=== PATIENT | male | born 1940 | race Caucasian/White ===

== ENCOUNTER 2016-09-28 14:02 | Inpatient (IN) | payer MEDICARE, OTHER ==
[2016-09-28] MEDS ORDERED: METHYLPREDNISOLONE SOD 125 MG/2 ML VIAL ONE (14:25)
[2016-09-28] MEDS ORDERED: IPRATROPIUM/ALBUTEROL 0.5/3 MG 3 ML AMPUL.NEB INHALATION ONE (14:26)
[2016-09-28 14:35] LABS: BASOPHIL# 0.3 X 10^3uL (0.0-0.1); BASOPHILS 2.7 % (0.0-2.0); EOSINOPHILS 2.8 % (0.0-6.0); EOSINOPHILS# 0.3 X 10^3uL (0.0-0.4); HEMOGLOBIN 16.7 g/dL (14.0-18.0); LYMPHOCYTES 12.1 % (20.0-40.0); LYMPHOCYTES# 1.3 X 10^3uL (0.8-3.8); MEAN CELL VOLUME 91.8 fL (80.0-100.0); MEAN CORPUS. HGB CONCENTRATION 34.8 g/dL (32.0-36.0); MEAN PLATELET VOLUME 8.7 fL (7.4-10.4); MONOCYTES 9.2 % (2.0-10.0); NEUTROPHILS 73.2 % (54.0-75.0); NEUTROPHILS# 7.5 X 10^3uL (2.6-6.7); PLATELET COUNT 154 X 10^3uL (130-440); RED BLOOD COUNT 5.23 X 10^6uL (4.20-6.10); RED CELL DISTRIBUTION WIDTH 12.1 % (11.5-14.5); WHITE BLOOD COUNT 10.4 X 10^3uL (3.9-10.7)
[2016-09-28] MEDS ORDERED: MAGNESIUM SULFATE 100 ML IV ONE (14:38)
[2016-09-28 14:50] LABS: BLOOD UREA NITROGEN 15 mg/dL (9-20); CALCIUM 9.9 mg/dL (8.4-10.2); CHLORIDE 104 mmol/L (98-107); EST GLOMERULAR FILTRATION RATE > 60 mL/min; GLUCOSE 86 mg/dL (70-100); SODIUM 139 mmol/L (137-145)
[2016-09-28] MEDS ORDERED: ACETAMINOPHEN 325 MG TABLET PO PRN (15:03)
[2016-09-28] MEDS ORDERED: HOME MEDICATION LIST NEEDED 1 EA EACH MC ONE (15:03)
[2016-09-28] MEDS ORDERED: AZITHROMYCIN 250 MG TABLET PO ONE ×2 (15:07→16:57)
--- NOTE | 2016-09-28 15:41 | ER NURSING DOCUMENTATION ---
Nurse's Notes [facility] Name:Reid Graham Age:76 yrs Sex:Male :1940 Arrival Date:09/28/2016 Time:14:02 Bed1 Private MD:Jayant Castañeda Diagnosis:COPD Exacerbation Presentation: 09/28 14:04 Acuity: MARLENY 3 st 14:04 Transition of care: [facility]. Notified ED Physician of Harris Garcia notified. st 14:04 Method Of Arrival: Private Vehicle st 14:34 Presenting complaint: Patient states: Pt states since Saturday night he has had rh difficulty breathing, chest tightness, cough and "feeling lousy". Pt was sent up from the clinic with hypoxia/atelectasis shown on CXR and negative influenza A and B. Triage Assessment: 14:15 General: Appears in no apparent distress, Behavior is cooperative. Pain: Complains of rh pain in abdomen Pain began Pain is only present when patient is coughing deeply. EENT: Oral mucosa is dry. Neuro: Level of Consciousness is awake, alert, obeys commands, Oriented to person, place, time, event. Cardiovascular: Capillary refill < 3 seconds Rhythm is sinus rhythm Chest pain is denied. Respiratory: Airway is patent Respiratory effort is even, labored, Respiratory pattern is regular, symmetrical, Reports. Respiratory: Onset: The symptoms/episode began/occurred yesterday, the patient has mild shortness of breath. Respiratory: Reports shortness of breath at rest since Saturday Night cough that is non-productive, labored breathing pain with cough. GI: Abdomen is obese, Denies diarrhea, nausea, vomiting. : No deficits noted. Derm: Skin is intact, is healthy with good turgor, Skin is pink, warm & dry. Historical: - Allergies: Tape; Celebrex; erythromycin; IODINEIODINE CONTAINING; Sulfa (Sulfonamide Antibiotics); Amitriptyline; Avapro; GABAPENTIN; Hytrin; meloxicam; Naproxen; Neosporin ([id number]); Novocain; NSAIDS; PENICILLINS; Zestril; - Home Meds: 1. Flomax 0.4 mg oral cp24 1 cap once daily 1/2 hour following the same meal each day 2. Zofran Oral 3. oxygen 4. Anusol Rectal 5. betamethasone dipropionate top 6. Alprazolam Oral 7. Furosemide Oral 8. Potassium Chloride Oral 9. Metoprolol Tartrate Oral 10. Metamucil Smooth Texture Oral 11. Miralax Oral 12. Pepcid Oral 13. cesar root (bulk) misc 14. finasteride oral 15. cabergoline oral 16. Vitamin D Oral - PMHx: HYPOTHYROIDISM; BPH; COPD; HYPERTENSION; DIABETES - NIDDM; SLEEP APNEA; GERD; ANXIETY; - PSHx: TURP; APPENDECTOMY; - Tetanus: < 10 years. - Ebola Screening: : Patient negative for fever greater than or equal to 101.5 degrees Fahrenheit, and additional compatible Ebola Virus Disease symptoms. - Immunization history: Pneumococcal vaccine is up to date. - Social history: Smoking status: Patient states former smoker of tobacco. Patient/guardian denies using alcohol. Screenin:28 Infectious Disease Risk None. Abuse screen: Denies threats or abuse. Denies injuries rh from another. Nutritional screening: No deficits noted. Assessment: 14:29 See Triage Assessment done by same RN. rh Vital Signs: 14:10 BP 167 / 101; Pulse 88; Resp 17; Temp 97.7(O); Pulse Ox 87% on R/A; Weight 104.33 kg; rh Height 5 ft. 9 in. (175.26 cm); Pain 0/10; 14:20 Pulse 83; Resp 15; Pulse Ox 92% on 3 lpm NC; rh 15:38 BP 165 / 80; Pulse 82; Resp 18; Pulse Ox 91% on 3 lpm NC; Pain 0/10; rh 14:10 Body Mass Index 33.96 (104.33 kg, 175.26 cm) rh ED Course: 14:02 Oxygen Oxygen administration via nasal cannula @ 3L/min. rh 14:03 Patient arrived in ED. lm3 14:03 Jayant Castañeda MD is Private Physician. lm3 14:[address] 14:05 Reid Iglesias MD is Attending Physician. jm 14:10 monitoring coordinator on. Pulse ox on. NIBP on. rh 14:12 Misty Camejo is Primary Nurse. rh 14:18 EKG done. (by ED staff). Reviewed by Reid Iglesias MD. 14:27 Inserted peripheral IV: 20 gauge in right antecubital area and blood collected. st 14:28 Valuables Remains with patient Patient has correct armband on for positive rh identification. Bed in low position. Call light in reach. Side rails up X 1. 15:09 EKG attached 15:13 Paula Kinney MD is Admitting Physician. Administered Medications: 12:25 Drug: Solu-MEDROL 125 mg; Route: IVP; Site: right antecubital; rh 14:40 Follow up: Response: No adverse reaction rh 14:22 Drug: DuoNeb (Albuterol 2.5 mg, Atrovent 0.5 mg); 3 ml; Route: Nebulizer; rh 14:34 Follow up: Response: No adverse reaction rh 14:30 Drug: Magnesium Sulfate 1 grams; Route: IVPB; Infused Over: 30 mins; Site: right rh antecubital; 15:05 Follow up: IV Status: Completed infusion; IV Intake: 100ml rh Intake: 15:05 IV: 100ml; Total: 100ml. Outcome: 15:13 Decision to Admit by Provider. 15:38 Admitted to Med/surg accompanied by nurse, via stretcher, with oxygen, with chart. 15:38 Condition: stable 15:38 Report given to HÉCTOR DUFFY RN MED SURG 15:38 Discharge Assessment: Patient awake, alert and oriented x 3. No cognitive and/or functional deficits noted. Patient verbalized understanding of disposition instructions. 15:38 Instructed on need to admit 15:39 Patient left the ED. Signatures: Falguni Biggs RN RN st Meyer, John, MD MD jm Hofsess, Rachel Constanza Underwood 3
--- NOTE | 2016-09-28 15:41 | ER PHYSICIAN DOCUMENTATION ---
Physician Documentation [facility] Name:Reid Graham Age:76 yrs Sex:Male :1940 Arrival Date:09/28/2016 Time:14:02 Bed1 Private MD:Jayant Castañeda EDReid ceja Disposition: 09/28/16 15:13 Admit ordered for Paula Kinney. Preliminary diagnosis is COPD Exacerbation. - Bed requested for Medical/Surgical. - Condition is Fair. - Problem is new. - Symptoms are unchanged. 23 HR OBS Yes HPI: 09/28 14:43 This 76 yrs old Male presents to ER via Private Vehicle with complaints of jm COPD Exacerbation. 14:43 The patient has shortness of breath at rest, while exercising. Onset: The jm symptom(s)/episode began/occurred 2 day(s) ago, and became worse today. Duration: The symptoms are continuous. The patient's shortness of breath is aggravated by light activity. Associated signs and symptoms: Pertinent positives: non-productive cough, Pertinent negatives: chest pain, only when coughing - bilateral ribs. Severity of symptoms: in the emergency department the symptoms have improved mildly. The patient has experienced a previous episode, approximately 2 years ago. The patient has been recently seen by a physician: Dr. Kinney, with similar presenting complaints, X-rays were performed, and pt told to come to the ER for eval, but the patient's symptoms have persisted. Dr. Kinney has sent up this pleasant gentleman for COPD work up and treatment. Xrays were reviewed by her and showed no infiltrate and flu swabs were negative. HE was given 1 duoneb downstairs but continues to be tight w difficulty moving air and hypoxia, so she wanted him seen here for urgent w/u and admission. . Historical: - Allergies: Tape; Celebrex; erythromycin; IODINEIODINE CONTAINING; Sulfa (Sulfonamide Antibiotics); Amitriptyline; Avapro; GABAPENTIN; Hytrin; meloxicam; Naproxen; Neosporin ([id number]); Novocain; NSAIDS; PENICILLINS; Zestril; - Home Meds: 1. Flomax 0.4 mg oral cp24 1 cap once daily 1/2 hour following the same meal each day 2. Zofran Oral 3. oxygen 4. Anusol Rectal 5. betamethasone dipropionate top 6. Alprazolam Oral 7. Furosemide Oral 8. Potassium Chloride Oral 9. Metoprolol Tartrate Oral 10. Metamucil Smooth Texture Oral 11. Miralax Oral 12. Pepcid Oral 13. cesar root (bulk) misc 14. finasteride oral 15. cabergoline oral 16. Vitamin D Oral - PMHx: HYPOTHYROIDISM; BPH; COPD; HYPERTENSION; DIABETES - NIDDM; SLEEP APNEA; GERD; ANXIETY; - PSHx: TURP; APPENDECTOMY; - Tetanus: < 10 years. - Ebola Screening: : Patient negative for fever greater than or equal to 101.5 degrees Fahrenheit, and additional compatible Ebola Virus Disease symptoms. - Immunization history: Pneumococcal vaccine is up to date. - Social history: Smoking status: Patient states former smoker of tobacco. Patient/guardian denies using alcohol. ROS: 14:46 Constitutional: Negative for fatigue, fever. jm 14:46 ENT: Negative for rhinorrhea, sinus congestion, sinus pain, sore throat. 14:46 Cardiovascular: Positive for chest pain, with cough. 14:46 Respiratory: Positive for cough, dyspnea on exertion, shortness of breath, wheezing. 14:46 Abdomen/GI: Negative for abdominal pain, nausea, vomiting, diarrhea. 14:46 MS/extremity: Negative for swelling, tenderness. 14:46 Skin: Negative for rash, swelling. 14:46 Neuro: Negative for dizziness, headache. 14:46 All other systems are negative. Exam: 14:47 Constitutional: The patient appears alert, awake, comfortable. 14:47 Eyes: Periorbital structures: appear normal, Pupils: equal, round, and reactive to light and accomodation, Extraocular movements: intact throughout. 14:47 ENT: Mouth: is normal, Voice: is normal. 14:47 Neck: Thyroid: appears normal, Trachea: is midline with no obvious abnormalities. 14:47 Cardiovascular: Rate: normal, Rhythm: regular. 14:47 Respiratory: the patient does not display signs of respiratory distress, Pt is moving air. , Respirations: normal, Breath sounds: wheezing, that is moderate, is heard diffusely. 14:47 Abdomen/GI: Bowel sounds: normal, Palpation: abdomen is soft and non-tender. 14:47 Back: pain, is absent, CVA tenderness, is absent. 14:47 Musculoskeletal/extremity: DVT Exam: No signs of deep vein thrombosis. Calves: are non-tender. 14:47 Skin: Appearance: Color: pink. 14:47 Neuro: Mentation: is normal, Memory: is normal. 14:47 Psych: Behavior/mood is pleasant, cooperative, Affect is calm. Vital Signs: 14:10 BP 167 / 101; Pulse 88; Resp 17; Temp 97.7(O); Pulse Ox 87% on R/A; Weight 104.33 kg; rh Height 5 ft. 9 in. (175.26 cm); Pain 0/10; 14:20 Pulse 83; Resp 15; Pulse Ox 92% on 3 lpm NC; rh 15:38 BP 165 / 80; Pulse 82; Resp 18; Pulse Ox 91% on 3 lpm NC; Pain 0/10; rh 14:10 Body Mass Index 33.96 (104.33 kg, 175.26 cm) rh MDM: 14:32 Patient medically screened. 14:51 Differential diagnosis: asthma, CHF exacerbation, Chronic Obstructive Pulmonary Disease jm pulmonary edema. Antibiotic administration: The patient is discharged and will get outpatient antibiotics, Zithromax. Data reviewed: vital signs, nurses notes, old medical records, lab test result(s), EKG, radiologic studies, and as a result, I will admit patient. Data interpreted: Pulse oximetry: is 90 %. Test interpretation: by ED physician or midlevel provider: plain radiologic studies, ECG. Counseling: I had a detailed discussion with the patient and/or guardian regarding: the historical points, exam findings, and any diagnostic results supporting the discharge/admit diagnosis, lab results, radiology results, the need for further work-up and treatment in the hospital. ECG:. Medication response: The patient's symptoms have improved. Physician consultation: Paula Kinney MD regarding admission, and will see patient shortly, later today. Admission orders: after a detailed discussion of the patient's condition and case, the admit orders are written by me. ED course: PT doing better here then report given to me from Dr. Kinney. He is moving air, although still wheezy. Pt doing well on 3LNC. HE normally does not wear any during the day however. Duoneb, mag, and Solu-Medrol given in ED. Will given PO Zithromax and admit. . 15:09 EKG attached rh 09/28 14:50 Order name: CBC AUTO DIF, MDIF/RMOR IF IND; Complete Time: 15: [facility] 09/28 14:52 Order name: BASIC METABOLIC PANEL; Complete Time: 15: [facility] 09/28 14:06 Order name: 12-lead EKG; Complete Time: 14: 09/28 14:06 Order name: Continuous Cardiac Monitoring; Complete Time: 14: 09/28 14:06 Order name: I & O; Complete Time: 14: 09/28 14:06 Order name: Iv Saline Lock; Complete Time: : 09/28 14:06 Order name: Oxygen; Complete Time: : 09/28 14:06 Order name: Pulse Ox Continuous; Complete Time: : EC:51 Rhythm is regular. QRS [place] is Normal. VA interval is normal. QT interval is normal. No jm Q waves. T waves are Normal. No ST changes noted. Dispensed Medications: 12:25 Drug: Solu-MEDROL 125 mg; Route: IVP; Site: right antecubital; rh 14:40 Follow up: Response: No adverse reaction rh 14:22 Drug: DuoNeb (Albuterol 2.5 mg, Atrovent 0.5 mg); 3 ml; Route: Nebulizer; rh 14:34 Follow up: Response: No adverse reaction 14:30 Drug: Magnesium Sulfate 1 grams; Route: IVPB; Infused Over: 30 mins; Site: right antecubital; 15:05 Follow up: IV Status: Completed infusion; IV Intake: 100ml rh Signatures: Falguni Biggs RN RN st Meyer, John, MD MD jm Hofsess, Rachel
[2016-09-28] MEDS ORDERED: O2 HUMIDIFIER 650 ML BOTTLE INHALATION ONE (17:02)
[2016-09-28] MEDS: IPRATROPIUM/ALBUTEROL 0.5/3 MG 3 ML AMPUL.NEB INHALATION SCH ×2 (17:12→21:15)
[2016-09-28] MEDS ORDERED: POLYETHYLENE GLYCOL 3350 17 GM POWD.PACK PO PRN (18:00)
[2016-09-28] MEDS ORDERED: ALPRAZolam 0.5 MG TABLET PO PRN (18:00)
[2016-09-28 18:21] LABS: ALBUMIN 4.2 g/dL (3.5-5.0); BILIRUBIN, DIRECT 0.2 mg/dL (0.0-0.4); BILIRUBIN, TOTAL 0.8 mg/dL (0.2-1.3); TOTAL PROTEIN 6.9 g/dL (6.3-8.2)
[2016-09-28] MEDS ORDERED: metoprolol SUCC ER 25 MG TABLET PO ONE (20:00)
[2016-09-28] MEDS: PROBIOTIC 1 CAP CAPSULE PO SCH (20:50)
[2016-09-28] MEDS: TAMSULOSIN HCL 0.4 MG CAPSULE PO SCH (20:51)
[2016-09-28] MEDS: ACETAMINOPHEN ER 650 MG TAB.SR.8HR PO PRN (20:51)
[2016-09-28] MEDS: FINASTERIDE 5 MG TABLET PO SCH (20:51)
[2016-09-28] MEDS: traZODone HCL 50 MG TABLET PO SCH (20:51)
[2016-09-28] MEDS: METHYLPREDNISOLONE SOD 125 MG/2 ML VIAL IV SCH (21:15)
[2016-09-28] MEDS: BENZONATATE 100 MG CAPSULE PO PRN (21:16)
[2016-09-28] MEDS: INSULIN LISPRO 100 UNIT/ML ML SUBCUT SCH (21:16)
[2016-09-28 21:40] LABS: URINE MUCUS NONE SEEN (Up to 25%); URINE RBC NONE SEEN (0-5/hpf); URINE SQUAMOUS EPITHELIAL CELL NONE SEEN (<= 15/hpf)
[2016-09-28 21:53] LABS: URINE APPEARANCE CLEAR; URINE COLOR YELLOW; URINE GLUCOSE 100mg/dL (NEGATIVE); URINE KETONE 5mg/dL (NEGATIVE); URINE LEUKOCYTE ESTERASE NEGATIVE (NEGATIVE); URINE NITRITE NEGATIVE (NEGATIVE); URINE PH 5.5 (5-7); URINE PROTEIN NEGATIVE (NEG - TRACE); URINE UROBILINOGEN 0.2mg/dL (Normal) (NEG-1mg/dL)
[2016-09-28 21:54] LABS: URINE BACTERIA NONE SEEN (<10/hpf); URINE BILIRUBIN NEGATIVE (NEGATIVE); URINE BLOOD NEGATIVE (NEGATIVE); URINE WBC 0-4/hpf (0-4/hpf)
[2016-09-28] MEDS ORDERED: SIMETHICONE CHEW 80 MG TABLET PO PRN (22:05)
--- NOTE | 2016-09-29 03:13 | HISTORY & PHYSICAL ---
DATE OF ADMISSION: 09/28/16 PRIMARY CARE PROVIDER: Dr. Jayant Castañeda. CHIEF COMPLAINT: Cough. HISTORY OF PRESENT ILLNESS: This is a pleasant 76-year-old male with a history of chronic obstructive pulmonary disease who wears 2 liters of oxygen at night, who presents with a 3-day history of productive cough, profound rhinorrhea and shortness of breath. He has had associated significant fatigue. He did not sleep last night at all secondary to his cough. He has had nasal congestion, a sore throat and wheezing. He has not had any fevers, chills or sweats. No trouble swallowing. No ear pain. No headaches. No hemoptysis. He has not had any sinus congestion. He states that his symptoms are worsening. He used Mucinex, Tylenol and Duo nebulizers at home with minimal to no relief. He has had chest pain with coughing. Of note, the patient was initially seen in the office. Because his aeration did not improve after Duo nebulizer, he was transported to the emergency room. In the emergency room he was given Solu- Medrol 125 mg IV and Duo nebulizer times 1, magnesium sulfate 1 g, and normal saline 100 mL. He was then taken to the medical surgical floor. REVIEW OF SYSTEMS: He has not had ear pain, eye discharge. No myalgias, no arthralgias. No lightheadedness. No nausea or vomiting, diarrhea or abdominal pain. His appetite has been fair. PAST MEDICAL HISTORY 1. Fatty liver. 2. Nocturnal hypoxia, wears 2 liters at night. 3. Degenerative disk disease of the cervical spine. 4. Basal cell carcinoma of his nose status post Mohs procedure. 5. History of colonic polyps. 6. Idiopathic peripheral neuropathy. 7. Paroxysmal supraventricular tachycardia. 8. 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 9. Hypothyroidism. 10. Hyperlipidemia. 11. Benign prostatic hypertrophy. 12. COPD. 13. Hypertension. 14. History of nephrolithiasis. 15. History of prior pneumonia. 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 17. Controlled diabetes with diabetic neuropathy. 18. Dry eye syndrome. 19. Cataract bilaterally. 20. Pituitary adenoma. 21. Obstructive sleep apnea. Has not been able to tolerate CPAP. 22. Hypotestosteronism. 23. Gastroesophageal reflux disease. 24. History of chronic prostatitis without hematuria. 25. Anxiety. 26. Eczema. 27. Obesity. 28. Fecal incontinence. 29. Erectile dysfunction. PAST SURGICAL HISTORY 1. Status post transurethral resection of the prostate in 2012. 2. History of left tibia/fibia fracture status post operative reduction and internal fixation with screw removal in 2000. 3. Appendectomy. MEDICATIONS Flomax 0.4 mg daily. Medical compression stockings below the knee 15-20 mmHg. Furosemide 20 mg every morning as needed for edema. Potassium chloride ER 10 mEq daily when Lasix is taken. Betamethasone dipropionate 0.05% twice daily to feet as needed. Alprazolam 0.5 mg twice daily. Anusol HC one two times daily as needed for hemorrhoids. Zofran ODT 4 mg every 8 hours as needed for nausea. Oxygen 2 liters at night. Metoprolol succinate ER 25 mg daily. Pepcid 20 mg daily. Metamucil 28.3% powder as needed. MiraLax 1 cap full as needed. Maalox as needed. Cabergoline 0.5 one-half tablet weekly. Vitamin D3 daily. Caroline root 500 mg as needed. Finasteride 5 mg daily. ALLERGIES: Adhesive tape, Celebrex, erythromycin, Flomax, iodinated contrast, sulfa, amitriptyline, Avapro, gabapentin, Hytrin, meloxicam, Naprosyn, Neosporin , novocaine, NSAIDs, penicillin, Zestril. SOCIAL HISTORY: He is . They have 3 children. 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 No alcohol use. Former smoker, quit in 1989, 36-pack year history. FAMILY HISTORY: Mom at the age of 80 with ALS. Dad at the age of 54 of a GA. He has one daughter with bipolar disorder. Maternal grandfather at 56 of a myocardial infarction. He also had diabetes mellitus. DATA: CBC unremarkable. BMP also normal. LFTs normal. Influenza A and B negative. IMAGING: Chest x-ray: No evidence of pneumonia or pulmonary edema. Linear opacities in the right middle lobe and lingual most consistent with scarring or subsegmental atelectasis. PHYSICAL EXAMINATION VITAL SIGNS: In the office temperature 98.7, pulse 82, respiratory rate 20, pulse oximetry 87% on room air, blood pressure 143/76, weight 234.44 pounds, height 69 inches, pulse oximetry 91-92% on 3 liters simple mask. This was placed secondary to nasal congestion. After nebulizer he was 79-82% on room air and increased to 88-89% with deep breathing. His peak flows before nebulizer 350, 310, 290, and post nebulizer 280, 293, 310. GENERAL: This is a very pleasant, obese male who is in mild respiratory distress. He has audible wheezing. HEENT: His sclerae are clear. His TMs are clear. He has some cerumen but not fully impacted. His nares are boggy, congested. No bleeding. No sinus tenderness. LUNGS: Very poor aeration throughout with diffuse inspiratory and expiratory wheezing. Not much improvement after one Duo nebulizer given. HEART: Regular rate and rhythm without any murmurs, rubs or gallops. ABDOMEN: Obese, soft, nontender, nondistended with good bowel sounds and no masses or hepatosplenomegaly. EXTREMITIES: Warm. No clubbing, cyanosis or edema. NEUROLOGIC: The patient is alert and oriented x3. He has some difficulty with giving a complete history. He is at his baseline mild cognitive impairment status. ASSESSMENT: This is a very pleasant 76-year-old who presents with COPD exacerbation. PLAN 1. Fluids, electrolytes and nutrition. The patients electrolytes are stable. He appears euvolemic. Buff cap IV fluids. Diabetic diet. 2. Respiratory. The patient with history of COPD. He uses oxygen at night but not usually during the day. He is hypoxemic. Continue oxygen to keep saturations at 88-89%. Continue Duo nebulizers. Continue steroids. Azithromycin. Blood cultures times 2. Sputum cultures have been ordered. CBC is unremarkable. 3. Cardiovascular. The patient had EKG in the emergency room. Will review. The patient is placed on telemetry. The patient has a history of hypertension. Will continue beta johny. 4. . The patient with history of benign prostatic hypertrophy. Check urinalysis. Continue Flomax, Proscar. 5. GI. The patient with history of gastroesophageal reflux disease and constipation. Continue bowel regimen. 6. Psychosocial. The patient with history of anxiety. Will continue Xanax as per home regimen. Will use trazodone for sleep. 7. Disposition. Admitted to observation. Core status is full core. Anticipate 1-2 day hospital stay. CC: Dr. Jayant EDWARDS
[2016-09-29 03:51] VITALS: RESP 20
[2016-09-29] MEDS: METHYLPREDNISOLONE SOD 125 MG/2 ML VIAL IV SCH ×5 (04:03→21:22)
[2016-09-29] MEDS: IPRATROPIUM/ALBUTEROL 0.5/3 MG 3 ML AMPUL.NEB INHALATION SCH ×4 (04:03→21:22)
[2016-09-29] MEDS: BENZONATATE 100 MG CAPSULE PO PRN ×2 (04:11→21:36)
[2016-09-29] MEDS: ACETAMINOPHEN ER 650 MG TAB.SR.8HR PO PRN ×2 (06:07→21:36)
[2016-09-29 07:04] LABS: BLOOD UREA NITROGEN 23 mg/dL (9-20); CALCIUM 9.6 mg/dL (8.4-10.2); CHLORIDE 102 mmol/L (98-107); EST GLOMERULAR FILTRATION RATE > 60 mL/min; GLUCOSE 183 mg/dL (70-100); POTASSIUM 4.3 mmol/L (3.5-5.1); SODIUM 137 mmol/L (137-145)
[2016-09-29 07:06] LABS: HEMATOCRIT 50.2 % (42.0-54.0); HEMOGLOBIN 17.2 g/dL (14.0-18.0); MEAN CELL VOLUME 93.8 fL (80.0-100.0); MEAN CORPUS. HGB CONCENTRATION 34.3 g/dL (32.0-36.0); MEAN CORPUSCULAR HEMOGLOBIN 32.2 pg (29.0-35.0); MEAN PLATELET VOLUME 8.8 fL (7.4-10.4); PLATELET COUNT 169 X 10^3uL (130-440); RED BLOOD COUNT 5.35 X 10^6uL (4.20-6.10); RED CELL DISTRIBUTION WIDTH 12.1 % (11.5-14.5); WHITE BLOOD COUNT 13.1 X 10^3uL (3.9-10.7)
[2016-09-29 07:07] LABS: BAND% (Manual) 14 % (0.0-1.0); BASOPHIL % (Manual) 1 % (0.0-2.0); LYMPHOCYTE % (Manual) 5 % (20.0-40.0); MONOCYTE % (Manual) 1 % (2.0-10.0); NEUTROPHIL % (Manual) 79 % (54.0-75.0)
[2016-09-29 07:08] LABS: PLATELET ESTIMATE ADEQUATE
[2016-09-29] MEDS: INSULIN LISPRO 100 UNIT/ML ML SUBCUT SCH ×4 (07:16→21:17)
--- NOTE | 2016-09-29 08:42 | PROGRESS NOTE: IM SOAP ---
IM: PN Subjective General: fatigue (But improving.), good appetite, pain (Chest side wall pain improving.), no fever, no chills HEENT: sore throat Cardiovascular: chest pain (Mid-sternal, "solar plexus" chest wall pain last night improved.) Respiratory: cough (Dry cough), wheeze, SOB, no sputum Gastrointestinal: no abdominal pain, no bloating, no nausea, no vomiting, no diarrhea Genitourinary: other (chronic dribbling) IM: PN Objective Exam - I&O/Vital Signs I&O: Intake & Output 09/28/16 09/29/16 09/29/16 21:59 05:59 13:59 Intake Total 970 Output Total 830 Balance 140 Weight 104.326 kg Intake: Oral 970 Output: Urine 830 Other: Urine Appearance Clear Urine Color Straw Voiding Method Toilet Toilet # Voids 2 Vital Signs: Last Vital Signs Temp 36.5 C 09/29/16 06:50 Pulse 82 09/29/16 06:50 Resp 20 09/29/16 06:50 BP 140/80 09/29/16 06:50 Pulse Ox 93 09/29/16 06:50 Oxygen Flow Rate 3 Oxygen Delivery Method Nasal Cannula - Constitutional General appearance: Present: obese. Absent: acute distress - Head Head exam: Present: atraumatic, normal inspection, normocephalic - Eye Eye exam: Present: EOMI, PERRL - ENT ENT exam: Present: mucous membranes moist - Neck Neck exam: Present: full ROM - Respiratory Respiratory exam: Present: chest wall tenderness (Lateral chest wall, both sides.), wheezes (Inspiratory and expiratory wheezes throughout. ), other (Mild improved aeration as compared to admission.). Absent: accessory muscle use, rales - Cardiovascular Cardiovascular exam: Present: tachycardia. Absent: gallop, rubs, systolic murmur - GI/Abdominal GI/Abdominal exam: Present: normal bowel sounds, soft. Absent: mass, organomegaly, rebound, tenderness - Extremities Exam Extremities exam: Absent: calf tenderness, edema, tenderness - Neurological Exam Neurological exam: Present: alert, oriented X3 - Psychiatric Psychiatric exam: Present: anxious (At his baseline), normal mood - Allied Health Notes Allied health notes reviewed: nursing - Lab Labs: Laboratory Last Values WBC 13.1 X 10^3uL (3.9-10.7) H 09/29/16 06:15 RBC 5.35 X 10^6uL (4.20-6.10) 09/29/16 06:15 Hgb 17.2 g/dL (14.0-18.0) 09/29/16 06:15 Hct 50.2 % (42.0-54.0) 09/29/16 06:15 MCV 93.8 fL (80.0-100.0) 09/29/16 06:15 MCH 32.2 pg (29.0-35.0) 09/29/16 06:15 MCHC 34.3 g/dL (32.0-36.0) 09/29/16 06:15 RDW 12.1 % (11.5-14.5) 09/29/16 06:15 Plt Count 169 X 10^3uL (130-440) 09/29/16 06:15 MPV 8.8 fL (7.4-10.4) 09/29/16 06:15 Total Counted 100 09/29/16 06:15 Neutrophils % 73.2 % (54.0-75.0) 09/28/16 14:15 Neutrophils % (Manual) 79 % (54.0-75.0) H 09/29/16 06:15 Band Neuts % (Manual) 14 % (0.0-1.0) H 09/29/16 06:15 Lymphocytes % 12.1 % (20.0-40.0) L 09/28/16 14:15 Lymphocytes % (Manual) 5 % (20.0-40.0) L 09/29/16 06:15 Monocytes % (Manual) 1 % (2.0-10.0) L 09/29/16 06:15 Eosinophils % 2.8 % (0.0-6.0) 09/28/16 14:15 Basophils % 2.7 % (0.0-2.0) H 09/28/16 14:15 Basophils % (Manual) 1 % (0.0-2.0) 09/29/16 06:15 Neutrophils # 7.5 X 10^3uL (2.6-6.7) H 09/28/16 14:15 Lymphocytes # 1.3 X 10^3uL (0.8-3.8) 09/28/16 14:15 Monocytes 9.2 % (2.0-10.0) 09/28/16 14:15 Monocytes # 1.0 X 10^3uL (0.2-1.0) 09/28/16 14:15 Eosinophils # 0.3 X 10^3uL (0.0-0.4) 09/28/16 14:15 Basophils # 0.3 X 10^3uL (0.0-0.1) H 09/28/16 14:15 Platelet Estimate Adequate 09/29/16 06:15 Sodium 137 mmol/L (137-145) 09/29/16 06:15 Potassium 4.3 mmol/L (3.5-5.1) 09/29/16 06:15 Chloride 102 mmol/L (98-107) 09/29/16 06:15 Carbon Dioxide 24 mmol/L (22-30) 09/29/16 06:15 BUN 23 mg/dL (9-20) H D 09/29/16 06:15 Creatinine 1.0 mg/dL (0.7-1.3) 09/29/16 06:15 GFR Calculation > 60 mL/min 09/29/16 06:15 Glucose 183 mg/dL (70-100) H 09/29/16 06:15 Calcium 9.6 mg/dL (8.4-10.2) 09/29/16 06:15 Total Bilirubin 0.8 mg/dL (0.2-1.3) 09/28/16 14:06 Direct Bilirubin 0.2 mg/dL (0.0-0.4) 09/28/16 14:06 AST 30 U/L (17-59) 09/28/16 14:06 ALT 42 U/L (21-72) 09/28/16 14:06 Alkaline Phosphatase 44 U/L (38-126) 09/28/16 14:06 Total Protein 6.9 g/dL (6.3-8.2) 09/28/16 14:06 Albumin 4.2 g/dL (3.5-5.0) 09/28/16 14:06 Urine Color Yellow 09/28/16 20:45 Urine Appearance Clear 09/28/16 20:45 Urine pH 5.5 (5-7) 09/28/16 20:45 Ur Specific Nicholls 1.020 (0.001-1.035) 09/28/16 20:45 Urine Protein Negative (NEG - TRACE) 09/28/16 20:45 Urine Ketones 5mg/dl (NEGATIVE) A 09/28/16 20:45 Urine Blood Negative (NEGATIVE) 09/28/16 20:45 Urine Nitrate Negative (NEGATIVE) 09/28/16 20:45 Urine Bilirubin Negative (NEGATIVE) 09/28/16 20:45 Urine Urobilinogen 0.2mg/dl (normal) (NEG-1mg/dL) 09/28/16 20:45 Ur Leukocyte Esterase Negative (NEGATIVE) 09/28/16 20:45 Urine RBC None seen (0-5/hpf) 09/28/16 20:45 Urine WBC 0-4/hpf (0-4/hpf) 09/28/16 20:45 Ur Squamous Epith Cells None seen (<= 15/hpf) 09/28/16 20:45 Urine Bacteria None seen (<10/hpf) 09/28/16 20:45 Urine Mucus None seen (Up to 25%) 09/28/16 20:45 Urine Glucose 100mg/dl (NEGATIVE) A 09/28/16 20:45 Assessment and Plan - Date of Encounter Date of Encounter: 09/29/16 (1) COPD exacerbation Status: Acute Assessment and plan: He presented to office yesterday with COPD exacerbation. Chest x-ray negative. Influenza A and B negative. CBC and CMP normal. He has had some improvement in aeration. However, he still has diffuse inspiratory and expiratory wheezing throughout. He will need at least one more hospital day. Continue oxygen, DuoNeb nebulizers, IV steroids, and incentive spirometer. Current Visit: No (2) Hypoxia Status: Chronic Assessment and plan: He uses oxygen 2 L at nighttime at home. He is requiring 2-3 L of oxygen at all times here in the hospital. Current Visit: No (3) Obstructive sleep apnea Status: Chronic Assessment and plan: He has a history of obstructive sleep apnea. He has not been able to tolerate CPAP. He is treated with oxygen as an outpatient. Current Visit: No (4) HTN (hypertension) Status: Chronic Assessment and plan: His blood pressures have been elevated. This is most likely dueto the stress of hospitalization and IV steroids. Metoprolol has been increased. Continue to follow closely. Current Visit: No (5) Diabetes Status: Chronic Assessment and plan: He is not on medications for diabetes as an outpatient. His blood sugars have been elevated secondary to IV steroids and stress of hospitalization. Continue sliding scale insulin. Current Visit: No (6) Leukocytosis Status: Acute Assessment and plan: Mild elevation of white blood cell count most likely secondary to steroids. Follow. Current Visit: Yes - Time Spent With Patient Total time spent with greater than 50% in coordination of care (as documented) at patient's floor/unit and/or counseling patient: 25 - 35 minutes Estimated anticipated discharge: 1-2 days Quality Questions - VTE Prophylaxis Assessment VTE Present on Admission?: No Patient at risk for venous thromboembolism?: Yes VTE Risk Level: Moderate Risk VTE Medical Contraindication: N/A- VTE prophylaxsis ord (4) HTN (hypertension) Qualifiers: Hypertension type: essential hypertension Qualified Code(s): I10 - Essential (primary) hypertension (5) Diabetes Qualifiers: Diabetes mellitus type: type 2 Diabetes mellitus complication status: without complication Diabetes mellitus termite control technician insulin use: without correction use Qualified Code(s): E11.9 - Type 2 diabetes mellitus without complications (6) Leukocytosis Qualifiers: Leukocytosis type: bandemia Qualified Code(s): D72.825 - Bandemia
[2016-09-29] MEDS ORDERED: metoprolol SUCC ER 25 MG TABLET PO SCH (09:00)
[2016-09-29] MEDS: PROBIOTIC 1 CAP CAPSULE PO SCH (09:21)
[2016-09-29] MEDS: metoprolol SUCC ER 25 MG TABLET PO SCH (09:22)
[2016-09-29] MEDS: FAMOTIDINE 20 MG TABLET PO SCH (09:22)
[2016-09-29] MEDS ORDERED: SODIUM CHLORIDE NASAL SPRAY 44 SPRAY/44 ML BTL NASAL PRN ×2 (09:58→17:24)
[2016-09-29] MEDS ORDERED: SALINE TOPICAL PRN (10:39)
[2016-09-29] MEDS: AZITHROMYCIN 250 MG TABLET PO SCH (10:48)
[2016-09-29] MEDS: SALINE TOPICAL PRN (10:48)
[2016-09-29] MEDS: TAMSULOSIN HCL 0.4 MG CAPSULE PO SCH (21:17)
[2016-09-29] MEDS: traZODone HCL 50 MG TABLET PO SCH (21:17)
[2016-09-29] MEDS: FINASTERIDE 5 MG TABLET PO SCH (21:17)
[2016-09-30] MEDS: IPRATROPIUM/ALBUTEROL 0.5/3 MG 3 ML AMPUL.NEB INHALATION SCH ×2 (04:23→09:16)
[2016-09-30] MEDS: METHYLPREDNISOLONE SOD 125 MG/2 ML VIAL IV SCH ×2 (04:23→09:16)
[2016-09-30 06:47] LABS: BLOOD UREA NITROGEN 33 mg/dL (9-20); CHLORIDE 104 mmol/L (98-107); CREATININE 0.9 mg/dL (0.7-1.3); EST GLOMERULAR FILTRATION RATE > 60 mL/min; GLUCOSE 171 mg/dL (70-100); POTASSIUM 4.2 mmol/L (3.5-5.1); SODIUM 136 mmol/L (137-145)
[2016-09-30 06:50] VITALS: BP 124/52; PULSE 76; TEMP 97.9
[2016-09-30 06:51] LABS: HEMATOCRIT 45.3 % (42.0-54.0); HEMOGLOBIN 15.8 g/dL (14.0-18.0); MEAN CELL VOLUME 93.4 fL (80.0-100.0); MEAN CORPUS. HGB CONCENTRATION 34.8 g/dL (32.0-36.0); MEAN CORPUSCULAR HEMOGLOBIN 32.5 pg (29.0-35.0); MEAN PLATELET VOLUME 9.1 fL (7.4-10.4); PLATELET COUNT 166 X 10^3uL (130-440); RED BLOOD COUNT 4.85 X 10^6uL (4.20-6.10); RED CELL DISTRIBUTION WIDTH 12.3 % (11.5-14.5); WHITE BLOOD COUNT 19.1 X 10^3uL (3.9-10.7)
[2016-09-30 07:00] LABS: BAND% (Manual) 15 % (0.0-1.0); LYMPHOCYTE % (Manual) 3 % (20.0-40.0); MONOCYTE % (Manual) 1 % (2.0-10.0); NEUTROPHIL % (Manual) 81 % (54.0-75.0); PLATELET ESTIMATE ADEQUATE
[2016-09-30] MEDS: SALINE TOPICAL PRN (09:14)
[2016-09-30] MEDS: INSULIN LISPRO 100 UNIT/ML ML SUBCUT SCH (09:14)
[2016-09-30] MEDS: ACETAMINOPHEN ER 650 MG TAB.SR.8HR PO PRN (09:14)
[2016-09-30] MEDS: PROBIOTIC 1 CAP CAPSULE PO SCH (09:15)
[2016-09-30] MEDS: metoprolol SUCC ER 25 MG TABLET PO SCH (09:15)
[2016-09-30] MEDS: FAMOTIDINE 20 MG TABLET PO SCH (09:16)
[2016-09-30] MEDS: AZITHROMYCIN 250 MG TABLET PO SCH (09:16)
[2016-09-30 10:16] VITALS: O2SAT 89
--- NOTE | 2016-09-30 10:19 | DC SUMMARY: IM Note ---
Discharge Summary: IM/Peds Provider: Date of Admission: 09/28/16 Admitting Provider: HÉCTOR COELHO MD Attending Provider: HÉCTOR COELHO MD Discharging Provider: HÉCTOR COELHO MD Primary Care Provider: Discharge Date: 09/30/16 - Diagnosis (1) COPD exacerbation Status: Acute (2) Hypoxia Status: Chronic (3) Obstructive sleep apnea Status: Chronic (4) HTN (hypertension) Status: Chronic Qualifiers: Hypertension type: essential hypertension Qualified Code(s): I10 - Essential (primary) hypertension (5) Diabetes Status: Chronic Qualifiers: Diabetes mellitus type: type 2 Diabetes mellitus complication status: with neurologic complications Diabetes mellitus complication detail: with autonomic neuropathy Diabetes mellitus skilled nursing insulin use: without croze machine operator use Qualified Code(s): E11.43 - Type 2 diabetes mellitus with diabetic autonomic (poly)neuropathy (6) Leukocytosis Status: Acute Qualifiers: Leukocytosis type: bandemia Qualified Code(s): D72.825 - Bandemia (7) Constipation Status: Acute Qualifiers: Constipation type: other constipation type Qualified Code(s): K59.09 - Other constipation (8) Allergic rhinitis Status: Chronic Qualifiers: Allergic rhinitis trigger: unspecified Allergic rhinitis seasonality: unspecified seasonality Qualified Code(s): J30.9 - Allergic rhinitis, unspecified - Time Spent with Patient Total time spent providing and/or coordinating discharge services: Time with patient DS: Greater than 30 minutes Discharge - Patient/Caregiver Discharge Instructions Activity Level: Ambulate at least 3 times daily. Diet: Regular. Additional Instructions: Prednisone prescription: Prednisone 20mg : Take 2 tablets today at 3pm; then 3 tablets daily in the morning x 3 days; then 2 tablets daily x 3 days; then 1 tablet daily x 3 days; then 1/2 tablet daily x 3 days; then stop. Always take with food. Follow up: HÉCTOR COELHO MD [ACTIVE (Staff Physician)] - 10/01/16 4:30 pm Overall discharge status: patient is progressing back to baseline Print Language: ROMANIAN Home Medications: Lactobacillus Acidophilus/Pect [Acidophilus-Pectin Tab Chew] 1 each PO DAILY # 10 tab.chew Saline Nasal Gel [Geneva Saline Nasal Gel*] 1 applic TOPICAL Q1H PRN #1 markel PRN Reason: Congestion, Nasal predniSONE [Deltasone*] 20 mg PO DAILY@0600 #22 tablet Ipratropium/Albuterol 0.5/3 mg [Duoneb 2.5-0.5 mg/3 ml Soln*] 3 ml INHALATION Q6H #100 ampul.neb Sodium Chloride Nasal [place] [OCEAN/DEEP SEA NASAL SPRAY 45mL*] 1 spray NASAL Q1H PRN #1 btl PRN Reason: Congestion, Nasal traZODone HCL [Trazodone HCl*] 50 mg PO HS #30 tablet Azithromycin [Zithromax*] 250 mg PO DAILY #2 tablet Disposition: HOME, SELF-CARE Discharge Summary Data - Medication History Medication History: Home Medications ALPRAZolam [Xanax*] 0.5 mg PO DAILY PRN 09/28/16 Blood Glucose Monitoring 1 SUBCUT Q3DAY 09/28/16 Cabergoline 0.5 mg PO WEEKLY 09/28/16 Ciclopirox Olamine [Ciclopirox] 1 markel TOPICAL BID PRN 09/28/16 Famotidine [Pepcid AC] 20 mg PO DAILY 09/28/16 Finasteride [Finasteride*] 5 mg PO HS 09/28/16 Multivitamins,Therapeutic [Thera] 1 udtab PO DAILY 09/28/16 Polyethylene Glycol 3350 [Miralax*] 1 packet PO DAILY PRN 09/28/16 Tamsulosin HCl [Flomax*] 0.4 mg PO HS 09/28/16 metoprolol SUCC ER [Toprol Xl*] 25 mg PO DAILY 09/28/16 Inpatient Medications 09/28/16 17:56 Benzonatate [Tessalon Pearles] 200 mg PO TID PRN 09/28/16 18:00 ALPRAZolam [Xanax] 0.5 mg PO DAILY PRN Polyethylene Glycol 3350 [miraLAX] 17 gm PO DAILY PRN Probiotic [Jennifer-Q Capsule] 1 cap PO DAILY 09/28/16 20:22 Acetaminophen ER [Tylenol ER] 650 mg PO Q8H PRN 09/28/16 21:00 Finasteride [Proscar] 5 mg PO HS Insulin Lispro [HumaLOG] See Protocol SUBCUT ACHS Tamsulosin HCl [Flomax] 0.4 mg PO HS traZODone HCL [Desyrel] 50 mg PO HS 09/28/16 22:05 Simethicone Chew [Mylicon] 80 - 160 mg PO Q4H PRN 09/29/16 09:00 Famotidine [Pepcid] 20 mg PO DAILY metoprolol SUCC ER [topROL XL] 50 mg PO DAILY 09/29/16 10:00 Azithromycin [Zithromax] 250 mg PO DAILY 09/29/16 10:40 Saline Nasal Gel [Geneva Saline Nasal Gel] 1 applic TOPICAL Q1H PRN 09/29/16 17:24 Sodium Chloride Nasal [place] [Donovan Nasal [place]] 1 spray NASAL Q1H PRN 10/05/16 09:00 Cabergoline [Cabergoline] 0.5 mg PO WEEKLY Procedures and tests throughout hospitalization: Completed Lab Orders 09/28/16 14:06 HEPATIC PANEL [CHEM] Stat 09/28/16 20:45 urinalysis [UA W/ MICRO -CULTURE IF IND] [URINE] Routine 09/29/16 06:15 CBC W/ MANUAL DIFFERENTIAL [HEM] Routine 09/30/16 06:15 BMP [BASIC METABOLIC PANEL] [CHEM] AMDRAW CBC W/ MANUAL DIFFERENTIAL [HEM] Routine Pending Orders 09/28/16 17:56 Benzonatate [Tessalon Pearles] 200 mg PO TID PRN 09/28/16 18:00 ALPRAZolam [Xanax] 0.5 mg PO DAILY PRN Polyethylene Glycol 3350 [miraLAX] 17 gm PO DAILY PRN Probiotic [Jennifer-Q Capsule] 1 cap PO DAILY 09/28/16 19:05 BLOOD CULTURE [BC] Stat 09/28/16 20:18 Finger Stick Blood Sugar ACHS FINGER STICK Hypoglycemia treatment... PER PROTOCOL Notify Physician . 09/28/16 20:19 Incentive Spirometry Q1H Teach: Incentive Spirometry . 09/28/16 20:22 Acetaminophen ER [Tylenol ER] 650 mg PO Q8H PRN 09/28/16 21:00 Finasteride [Proscar] 5 mg PO HS Insulin Lispro [HumaLOG] See Protocol SUBCUT ACHS Tamsulosin HCl [Flomax] 0.4 mg PO HS traZODone HCL [Desyrel] 50 mg PO HS 09/28/16 22:05 Simethicone Chew [Mylicon] 80 - 160 mg PO Q4H PRN 09/29/16 08:57 Activity: Ambulate with Assist TID 09/29/16 08:58 Change from Observation to Inpatient Routine 09/29/16 09:00 Famotidine [Pepcid] 20 mg PO DAILY metoprolol SUCC ER [topROL XL] 50 mg PO DAILY 09/29/16 09:03 SHANTHI Suero . 09/29/16 10:00 Azithromycin [Zithromax] 250 mg PO DAILY 09/29/16 10:40 Saline Nasal Gel [[place]eva Saline Nasal Gel] 1 applic TOPICAL Q1H PRN 09/29/16 17:24 Sodium Chloride Nasal [place] [[place] Nasal [place]] 1 spray NASAL Q1H PRN 09/29/16 23:29 SPUTUM CULTURE AND GRAM STAIN [RM] Routine 10/05/16 09:00 Cabergoline [Cabergoline] 0.5 mg PO WEEKLY Labs on day of discharge: Labs from last 24 hours 09/30/16 06:15 WBC 19.1 H RBC 4.85 Hgb 15.8 Hct 45.3 MCV 93.4 MCH 32.5 MCHC 34.8 RDW 12.3 Plt Count 166 MPV 9.1 Total Counted 100 Neutrophils % Cancelled Neutrophils % (Manual) 81 H Band Neuts % (Manual) 15 H Lymphocytes % Cancelled Lymphocytes % (Manual) 3 L Monocytes % (Manual) 1 L Eosinophils % Cancelled Basophils % Cancelled Neutrophils # Cancelled Lymphocytes # Cancelled Monocytes Cancelled Monocytes # Cancelled Eosinophils # Cancelled Basophils # Cancelled Platelet Estimate Adequate Sodium 136 L Potassium 4.2 Chloride 104 Carbon Dioxide 21 L BUN 33 H Creatinine 0.9 GFR Calculation > 60 Glucose 171 H Calcium 9.0 Preliminary micro results at discharge 09/29/16 23:29 Sputum Culture - Preliminary Sputum No growth. 09/28/16 19:05 Blood Culture - Preliminary Blood NO GROWTH TO DATE 09/28/16 18:50 Blood Culture - Preliminary Blood NO GROWTH TO DATE - Impressions Reid was admitted with a COPD exacerbation. He was originally seen as an outpatient and then was transferred to the emergency room for further evaluation and treatment. He had a three-day history of upper respiratory symptoms. His influenza A and B testing were negative, his chest x-ray was negative for any acute process, and his CBC was normal. He was given a duonebulizer in the office with no improvement in his bronchospasm and worsening in his hypoxemia and peak flows. In the ED, he was given another duonebulizer and IV Solu-Medrol with some improvement in his symptoms. During his hospitalization, we continued the duonebulizers, IV steroids, incentive spirometer, oxygen, and began azithromycin. He gradually improved with increased aeration and air movement and decreased wheezing. On the day of discharge, he was saturating 88-90% on room air. He was able to ambulate in the halls multiple times yesterday with no difficulty. He is progressing back to his baseline. He states that he has not had a bowel movement in 4 days. We will begin a bowel regimen at home. He is followed by human capital manager Dr. Eli Dos Santos for a pituitary adenoma, hypoprolactinoma, and hypotestosteronism. Reid has appointment with Dr. Dos Santos in approximately 2 weeks. He will need laboratories prior to this appointment. We will send hospital records to Dr. Dos Santos so she is aware that Reid has been on both IV and now will be transitioned to oral steroids. Reid will follow-up with me in the office tomorrow afternoon. IM: Discharge Physical Exam - I&O/Vital Signs I&O: Intake & Output 09/29/16 09/30/16 09/30/16 21:59 05:59 13:59 Intake Total 1440 620 Output Total 600 1200 Balance 840 -580 Intake: Oral 1440 620 Output: Urine 600 1200 Other: Urine Appearance Clear Clear Urine Color Yellow Yellow Voiding Method Toilet Urinal # Voids 1 Vital Signs: Last Vital Signs Temp 36.6 C 09/30/16 06:49 Pulse 76 09/30/16 06:49 Resp 20 09/30/16 06:49 BP 124/52 09/30/16 06:49 Pulse Ox 92 09/30/16 06:49 Oxygen Flow Rate 2 Oxygen Delivery Method Nasal Cannula - Constitutional General appearance: Present: cooperative, obese. Absent: acute distress - Head Head exam: Present: atraumatic, normal inspection, normocephalic - Eye Eye exam: Present: EOMI, PERRL - ENT ENT exam: Present: mucous membranes moist - Neck Neck exam: Present: full ROM - Respiratory Respiratory exam: Present: chest wall tenderness (Lateral chest wall tenderness , both sides.), clear, wheezes (Mild isolated end-expiratory wheeze heard right anteror chest; otherwise lungs are completely clear. ), other (Greatly improved aeration as compared to admission.). Absent: accessory muscle use, rales - Cardiovascular Cardiovascular exam: Present: RRR. Absent: gallop, rubs, systolic murmur - GI/Abdominal GI/Abdominal exam: Present: distended (Mildly), normal bowel sounds, soft. Absent: mass, organomegaly, rebound, tenderness - Extremities Exam Extremities exam: Present: other (SHANTHI hose in place.). Absent: calf tenderness , edema, tenderness - Neurological Exam Neurological exam: Present: alert, normal gait, oriented X3 - Psychiatric Psychiatric exam: Present: anxious (At his baseline), normal mood - Allied Health Notes Allied health notes reviewed: nursing
[2016-09-30] MEDS ORDERED: predniSONE 10 MG TABLET PO SCH (15:00)
[2016-10-05] MEDS ORDERED: Cabergoline [Cabergoline] 0.5 MG PO SCH (09:00)
== END 2016-09-30 12:20 | disposition home or self-care (01) | DRG 191 ==
LOC: ER 14:02 → IN 15:03 → UNDOADMOB 15:03 → IN 15:31 → OBSVTOIN 15:31
PROVIDERS: ADMIT Family Medicine; ATTEND Family Medicine
DX: J44.1 Chronic obstructive pulmonary disease with (acute) exacerbation (principal); G47.33 Obstructive sleep apnea (adult) (pediatric); I47.1 Supraventricular tachycardia; I10 Essential (primary) hypertension; E11.43 Type 2 diabetes mellitus with diabetic autonomic (poly)neuropathy; D72.829 Elevated white blood cell count, unspecified; K59.09 Other constipation; J30.9 Allergic rhinitis, unspecified; G47.34 Idiopathic sleep related nonobstructive alveolar hypoventilation; Z99.81 Dependence on supplemental oxygen; E78.5 Hyperlipidemia, unspecified; E03.9 Hypothyroidism, unspecified; E22.1 Hyperprolactinemia; K76.0 Fatty (change of) liver, not elsewhere classified; Z86.010 Personal history of colon polyps; N40.0 Benign prostatic hyperplasia without lower urinary tract symptoms; M50.30 Other cervical disc degeneration, unspecified cervical region; Z85.828 Personal history of other malignant neoplasm of skin; Z87.01 Personal history of pneumonia (recurrent); K21.9 Gastro-esophageal reflux disease without esophagitis; F41.8 Other specified anxiety disorders; E66.9 Obesity, unspecified; R15.9 Full incontinence of feces; Z79.899 Other long term (current) drug therapy
CPT/HCPCS: 36415; 80048; 80076; 81001; 85007; 85025; 85027; 87040; 87070; 87205; 93005; 93010; 93041; 94640; 96365; 96375; 99285; E0555; J1815; J2930; J3475; J7620; Q0144